=== PATIENT | male | born 1930 | race Caucasian/White ===

== ENCOUNTER 2017-05-08 10:49 | Emergency (ER) | payer OTHER ==
[~2017-05-08] VITALS: Ht 175.3 cm; Wt 95.0 kg
[~2017-05-08 10:49] MED LIST: ACET-1175 PO; ADVIN25/60 INH; ALUMSUS17 PO; ATOR-14 PO; BISA10SU38 PR; CHOL100027 PO; HYDR-5688 PO; MOML PO; NITR0.4S SL; OXGN; SENN-65 PO; TAMS0.4C38 PO; ZNTT/150 PO
[2017-05-08 10:54] VITALS: TEMP 37; Ht 175.3 cm; Wt 95.0 kg
[2017-05-08] MEDS ORDERED: DLCS PR (11:10)
[2017-05-08] MEDS ORDERED: ATOR10TA88 PO (11:10)
[2017-05-08] MEDS ORDERED: TRAM-10 PO (11:10)
[2017-05-08] MEDS ORDERED: AMOX875T PO (11:10)
[2017-05-08] MEDS ORDERED: SODIENE PR (11:10)
[2017-05-08] MEDS ORDERED: ALUMSUS37 PO (11:10)
[2017-05-08] MEDS ORDERED: IPRASOL4 INH (11:10)
[2017-05-08] MEDS ORDERED: MENTOIN12 TOP (11:10)
[2017-05-08] MEDS ORDERED: NYSCR30 EXT (11:10)
[2017-05-08] MEDS ORDERED: SIME80CH PO (11:10)
--- NOTE | 2017-05-08 11:24 | EMERGENCY ROOM VISIT NOTE ---
History Report prepared by Abby: Renea Sabillon Under the Supervision of: Dr. Marcela Marie M.D. First contact with patient: 10:55 Chief Complaint: UNABLE TO VOID Stated Complaint: ABDOMINAL PAIN Nursing Triage Summary: pt arrives via ALS from [facility] Per ALS report from [facility] they are to send him here for a bladder scan of 400 or greater, the patient has been having little to no urinary output from catheter and per orders from the doctor [facility] is not supposed to do anything with the catheter to reposition it due to it was placed via scope because of hard cath technique. Pt sees Dr Simpson right now for his cath but daughter states she is trying to get an appt with Dr Thompson There appears to be 100 ML of dark urine in cath at this time, patient is reporting low pelvic pain Per daughter patient used to self cath but upon admission to [facility] ( 5 years ago) they required him to have a catheter because they refused to allow him to self cath and they would not straight cath him History of Present Illness The patient is a 86 year old male who presents to the Emergency Room with complaints of worsening urinary symptoms for the past couple of days. The patient is a resident at [facility]. Per daughter, he had a Apodaca catheter placed by Dr. Simpson last week. He has been having little to no urinary output from his catheter for the past couple of days. This morning staff at [facility] performed a bladder scan and the patient had 400 cc in his bladder. They sent the patient to the ED via ALS for further evaluation. The patient has lower abdominal pain. Source of History: family (daughter) Onset: a couple of days ago Position: other (bladder) Quality: other (unable to void) Timing: worsening Associated Symptoms: + abdominal pain Review of Systems See HPI for pertinent positives & negatives. A total of 10 systems reviewed and were otherwise negative. Past Medical & Surgical Medical Problems: (1) Cerebrovascular accident (2) Dyslipidemia (3) Pulmonary aspiration Family History Non-pertinent due to advanced age. Social History Smoking Status: Former Smoker Alcohol Use: none Housing Status: retirement Occupation Status: retired Current/Historical Medications Scheduled Alum & Mag Hydrox-Simethicone (Almacone-Ii Double Streng), 30 ML PO UD Amoxicillin & Pot Clavulanate (Augmentin 875-125 mg), 1 TAB PO BID Atorvastatin (Lipitor), 10 MG PO QPM Cephalexin Monohydrate (Keflex), 500 MG PO TID Cholecalciferol (Vitamin D 1000 Unit), 1,000 INTER.UNIT PO DAILY Fluticasone Prop/Salmeterol (Advair Diskus 250/50 60 Dose), 1 PUFF INH BID Home O2 Therapy (Oxygen), 2 LITERS NA PRN Menthol-Zinc Oxide (Risamine), 1 APPLN TOP UD Nitroglycerin (Nitrostat), 0.4 MG SL PRN Nystatin (Nystatin Cream), 0 EXT BID Ranitidine (Zantac), 150 MG PO HS Senna/Docusate Sod (Senokot S), 2 TAB PO BID Simethicone (Gas-X), 60 MG PO TIDM Tamsulosin Hcl (Flomax), 1 CAP PO HS Scheduled PRN Acetaminophen (Tylenol), 650 MG PO Q4 PRN for Pain or Fever Bisacodyl (Bisac-Evac), 1 SUPP LA UD PRN for NO BM X 5 DAYS Ipratropium-Albuterol (Duoneb), 1 TREATMENT INH Q4H PRN for SOB/Wheezing Magnesium Hydroxide (Milk Of Magnesia), 30 ML PO UD PRN for Constipation Sodium Phosphate/Biphosphate (Fleet Enema), 1 EA LA UD PRN for NO BM X 6 DAYS Tramadol (Ultram), 25 MG PO Q4H PRN for Pain Allergies Coded Allergies: Ciprofloxacin (Verified Allergy, Mild, RASH, 05/08/17) Quinolones (Verified Allergy, Unknown, RASH, 05/08/17) Sulfa Drugs (Verified Allergy, Unknown, SHORTNESS OF BREATH, 07/30/16) PER MD ORDER Physical Exam Vital Signs Date Time Temp Pulse Resp B/P (MAP) Pulse Ox O2 Delivery O2 Flow Rate FiO2 05/08/17 16:22 87 16 91/59 95 Room Air 05/08/17 15:33 101 20 141/68 95 Room Air 05/08/17 14:13 96 16 123/67 96 Room Air 05/08/17 13:49 103 05/08/17 13:41 78 20 140/66 100 Room Air 05/08/17 13:38 108 20 180/79 95 Room Air 05/08/17 13:35 104 05/08/17 13:11 94 20 127/74 99 Room Air 05/08/17 12:42 108 20 85/48 95 Room Air 05/08/17 11:55 102 22 177/94 96 Room Air 05/08/17 10:54 37.0 116 24 202/109 95 Room Air Physical Exam Vital signs reviewed. General: Well-appearing 86 yo male, in no significant distress. HEENT: No scleral icterus, PERRLA, neck supple. Atraumatic. Cardiovascular: Regular rate and rhythm, no extra sounds. Pulmonary: Clear to auscultation bilaterally, normal work of breathing. Abdomen: Soft, nontender, nondistended, positive bowel sounds. Musculoskeletal: Atraumatic, minimal peripheral edema. Neurologic: Patient awake alert and minimally verbal, c/o pain : hypospadia, apodaca in place with minimal output. Urine leaking around catheter. Skin: Warm, dry, no rash Medical Decision & Procedures Laboratory Results 05/08/17 13:20 Red Blood Count 5.07, Mean Corpuscular Volume 94.7, Mean Corpuscular Hemoglobin 31.4, Mean Corpuscular Hemoglobin Concent 33.1, Mean Platelet Volume 10.5, Neutrophils (%) (Auto) 75.6, Lymphocytes (%) (Auto) 13.1, Monocytes (%) (Auto) 9.7, Eosinophils (%) (Auto) 1.2, Basophils (%) (Auto) 0.2, Neutrophils # (Auto) 9.31, Lymphocytes # (Auto) 1.61, Monocytes # (Auto) 1.19, Eosinophils # (Auto) 0.15, Basophils # (Auto) 0.02 05/08/17 13:20 Test 05/08/17 00:00 05/08/17 13:20 05/08/17 13:37 Urine Color YELLOW Urine Appearance TURBID (CLEAR) Urine pH 8.0 (4.5-7.5) Urine Specific [place] 1.016 (1.000-1.030) Urine Protein 2+ (NEG) Urine Glucose (UA) NEG (NEG) Urine Ketones NEG (NEG) Urine Occult Blood 3+ (NEG) Urine Nitrite NEG (NEG) Urine Bilirubin NEG (NEG) Urine Urobilinogen NEG (NEG) Urine Leukocyte Esterase LARGE (NEG) Urine WBC (Auto) >30 /hpf (0-5) Urine RBC (Auto) >30 /hpf (0-4) Urine Hyaline Casts (Auto) 0 /lpf (0-5) Urine Epithelial Cells (Auto) >30 /lpf (0-5) Urine Bacteria (Auto) NEG (NEG) Urine Pathogenic Casts /lpf (0) Urine Yeast (Auto) (NONE PRSENT) White Blood Count 12.30 K/uL (4.8-10.8) Red Blood Count 5.07 M/uL (4.7-6.1) Hemoglobin 15.9 g/dL (14.0-18.0) Hematocrit 48.0 % (42-52) Mean Corpuscular Volume 94.7 fL (80-100) Mean Corpuscular Hemoglobin 31.4 pg (25-34) Mean Corpuscular Hemoglobin Concent 33.1 g/dl (32-36) Platelet Count 200 K/uL (130-400) Mean Platelet Volume 10.5 fL (7.4-10.4) Neutrophils (%) (Auto) 75.6 % Lymphocytes (%) (Auto) 13.1 % Monocytes (%) (Auto) 9.7 % Eosinophils (%) (Auto) 1.2 % Basophils (%) (Auto) 0.2 % Neutrophils # (Auto) 9.31 K/uL (1.4-6.5) Lymphocytes # (Auto) 1.61 K/uL (1.2-3.4) Monocytes # (Auto) 1.19 K/uL (0.11-0.59) Eosinophils # (Auto) 0.15 K/uL (0-0.5) Basophils # (Auto) 0.02 K/uL (0-0.2) RDW Standard Deviation 49.8 fL (36.4-46.3) RDW Coefficient of Variation 14.4 % (11.5-14.5) Immature Granulocyte % (Auto) 0.2 % Immature Granulocyte # (Auto) 0.02 K/uL (0.00-0.02) Anion Gap 5.0 mmol/L (3-11) Est Creatinine Clear Calc Drug Dose 24.2 ml/min Estimated GFR () 26.9 Estimated GFR (Non- 23.2 BUN/Creatinine Ratio 16.6 (10-20) Calcium Level 9.3 mg/dl (8.5-10.1) Total Bilirubin 0.6 mg/dl (0.2-1) Direct Bilirubin 0.2 mg/dl (0-0.2) Aspartate Amino Transf (AST/SGOT) 14 U/L (15-37) Alanine Aminotransferase (ALT/SGPT) 24 U/L (12-78) Alkaline Phosphatase 84 U/L (45-117) Total Protein 7.6 gm/dl (6.4-8.2) Albumin 3.4 gm/dl (3.4-5.0) Bedside Lactic Acid Venous 1.27 mmol/L (0.90-1.70) Laboratory results per my review. Medications Administered Medications (Trade) Dose Ordered Sig/Sheree Route Start Time Stop Time Status Last Admin Dose Admin Lidocaine HCl (Xylocaine Jelly 2%) 10 ml NOW ONCE EXT 05/08/17 11:45 05/08/17 11:49 DC 05/08/17 11:45 10 ML Sodium Chloride 500 ml @ 999 mls/hr Q31M STAT IV 05/08/17 13:07 05/08/17 13:37 DC 05/08/17 14:09 999 MLS/HR Sodium Chloride 1,000 ml @ 150 mls/hr Q6H40M STAT IV 05/08/17 13:07 05/08/17 17:31 DC 05/08/17 14:08 150 MLS/HR Ceftriaxone Sodium (Rocephin Inj) 1 gm NOW STAT IV 05/08/17 13:07 05/08/17 13:09 DC 05/08/17 14:08 1 GM ECG Indication: other Rate (beats per minute): 104 Rhythm: sinus tachycardia Findings: no acute ischemic change, no ectopy, other (previous inferior possible previous anterior infarct) ED Course 1103: Past medical records reviewed. The patient was evaluated in room C6. A complete history and physical examination was performed. 1144: I spoke with Dr. Casas of [facility] urology. We discussed the patient' s case. He recommended removal and LidoJet. 1145: Lidocaine HCl 10 ml EXT 1307: Rocephin 1 gm IV, NSS 1000 ml @ 150 mls/hr IV, NSS 500 ml @ 999 mls/hr IV 1429: I reassessed the patient at this time. He is feeling better and resting comfortably. I discussed the results and treatment plan with the patient and his family. I answered all pertaining questions that they had. They expressed understanding and verbalized agreement. The patient will be discharged home when transportation arrives. Medical Decision Differential diagnoses includes prostatitis, Apodaca catheter malfunction, UTI, blood clot, malignancy. This pt was evaluated and appeared to be in no distress. Nursing attempted a cath irrigation without success. Review of records indicates that urology has placed catheters with a scope in the past. Dr Casas of [facility] urology was consulted and asked that we remove old cath, use lidojet and immediately replace with a 16 fr coude catheter. This was successful. UA was sent and is + for UTI. Mucus strands were copious, staff irrigated cath until clear. Pt seems to tolerate well and ? had a low BP read. IV access was obtained lab work was drawn. Pt seems to be stable. He was hydrated with NSS and given IV ceftriaxone. Urine Cx is pending. Pt was d/c to nursing facility for further care. Blood Pressure Screening Patient's blood pressure: Normal blood pressure Consults Time Called: 1141 Consulting Physician: Dr. Casas Returned Call: [address] Casas of [facility] urology. We discussed the patient's case. He recommended removal and LidoJet. Impression Primary Impression: UTI (urinary tract infection) Additional Impression: Complication, blocked Apodaca catheter Scribe Attestation The scribe's documentation has been prepared under my direction and personally reviewed by me in its entirety. I confirm that the note above accurately reflects all work, treatment, procedures, and medical decision making performed by me. Departure Information Dispostion Home / Self-Care Prescriptions Cephalexin Monohydrate (Keflex) 500 Mg Cap 500 MG PO TID, #21 CAP Prov: Marcela Marie M.D. 05/08/17 Referrals Freya Turner M.D. (PCP) Cristin Simpson MD Forms HOME CARE DOCUMENTATION FORM, IMPORTANT VISIT INFORMATION, WORK / SCHOOL INSTRUCTIONS Patient Instructions My [facility] Additional Instructions Diagnosis: Apodaca catheter block, UTI Keflex 500 mg 3 times daily for 7 days. Drink plan of clear fluids. Irrigation of the Apodaca catheter as needed if it becomes blocked or does not drain properly. Follow-up with Dr. Simpson of urology within the next 1-2 weeks for reevaluation. Return to the ER for worsening of symptoms or any medical concerns. Problem Qualifiers Primary Impression: UTI (urinary tract infection) Urinary tract infection type: site unspecified Hematuria presence: with hematuria Qualified Codes: N39.0 - Urinary tract infection, site not specified ; R31.9 - Hematuria, unspecified Additional Impression: Complication, blocked Apodaca catheter Encounter type: initial encounter Qualified Codes: T83.091A - Other mechanical complication of indwelling urethral catheter, initial encounter
[2017-05-08] MEDS ORDERED: LIDOCAINE HCL 2% JELLY 30 ML TUBE EXT ONE (11:45)
[2017-05-08 12:44] LABS: URINE APPEARANCE TURBID (CLEAR); URINE BILIRUBIN NEG (NEG); URINE COLOR YELLOW; URINE EPITHELIAL CELL AUTO >30 /lpf (0-5); URINE NITRITE NEG (NEG); URINE SPECIFIC GRAVITY 1.016 (1.000-1.030); UROBILINOGEN NEG (NEG); ZZURINE CULT IF INDIC CATH YES
[2017-05-08 12:53] LABS: MANUAL MICROSCOPIC REQUIRED? NO; REVIEW REQ? YES; SULFASALICYLIC ACID POS (NEG)
[2017-05-08] MEDS ORDERED: CEFTRIAXONE SOD INJ 1 GM ADDVIAL IV STA (13:07)
[2017-05-08] MEDS ORDERED: SODIUM CHLORIDE 0.9% 1000ML 1,000 ML IV STA (13:07)
[2017-05-08] MEDS ORDERED: SODIUM CHLORIDE 0.9% 500ML 500 ML IV STA (13:07)
[2017-05-08 13:40] LABS: BASO % 0.2 %; BASO ABS # 0.02 K/uL (0-0.2); COMPLETE YES; EOS % 1.2 %; IG% 0.2 %; LYMPH % 13.1 %; LYMPH ABS # 1.61 K/uL (1.2-3.4); MEAN CELL VOLUME 94.7 fL (80-100); MEAN CORPUSCULAR HEMOGLOBIN 31.4 pg (25-34); MEAN CORPUSCULAR HGB CONC 33.1 g/dl (32-36); MEAN PLATELET VOLUME 10.5 fL (7.4-10.4); MONO % 9.7 %; NEUT % 75.6 %; PLATELET COUNT 200 K/uL (130-400); RED BLOOD COUNT 5.07 M/uL (4.7-6.1)
[2017-05-08 13:58] LABS: BUN/CREATININE RATIO 16.6 (10-20); CALCIUM 9.3 mg/dl (8.5-10.1); CREATININE 2.4 mg/dl (0.60-1.40); POTASSIUM 4.4 mmol/L (3.5-5.1)
[2017-05-08] MEDS ORDERED: CEPH500C PO (15:06)
[2017-05-08 16:22] VITALS: BP 91/59; PULSE 87; O2SAT 95
== END 2017-05-08 17:24 | disposition home or self-care (01) ==
LOC: EDBD 10:49 → C.EDC 10:51
DX: N39.0 Urinary tract infection, site not specified (principal); R31.9 Hematuria, unspecified; T83.091A Other mechanical complication of indwelling urethral catheter, initial encounter; Y84.6 Urinary catheterization as the cause of abnormal reaction of the patient, or of later complication, without mention of misadventure at the time of the procedure; E78.5 Hyperlipidemia, unspecified; Z86.73 Personal history of transient ischemic attack (TIA), and cerebral infarction without residual deficits; Z87.891 Personal history of nicotine dependence; Z79.899 Other long term (current) drug therapy